=== PATIENT | male | born 1940 | race Caucasian/White ===

== ENCOUNTER 2023-01-21 08:27 | Inpatient (IN) | payer MEDICARE ==
[2023-01-18 15:46] LABS: BASOPHILS % (AUTO) 0.1 % (0-1); BILIRUBIN,URINE NEGATIVE (Neg); CLARITY,URINE CLEAR (Clear); COLOR,URINE YELLOW (Yellow); EOSINOPHILS % (AUTO) 0.3 % (0-6); GLUCOSE, URINE NEGATIVE (Neg); KETONES,URINE TRACE mg/dl (Neg); LEUKOCYTE ESTERASE ,URINE NEGATIVE (Neg); LYMPHOCYTES # (AUTO) 0.7 X10'3 (1.1-4.8); LYMPHOCYTES % (AUTO) 13.4 % (21-51); MEAN CORPUSCULAR HGB CONC 33.7 g/dL (33.0-36.5); MEAN CORPUSCULAR VOLUME 106.6 FL (78-98); MEAN PLATELET VOLUME 10.7 FL (7.4-10.4); MONOCYTES # (AUTO) 0.5 X10'3 (0-0.9); MONOCYTES % (AUTO) 9.6 % (2-12); NEUTROPHILS # (AUTO) 4.3 X10'3 (1.8-7.7); NEUTROPHILS % (AUTO) 76.6 % (42-75); NITRITES, URINE NEGATIVE (Neg); OCCULT BLOOD,URINE NEGATIVE (Neg); PRE OP HEMATOCRIT 38.6 % (42.0-52.0); PRE OP WHITE BLOOD COUNT 5.6 10'3 (4.8-10.8); PROTEIN,URINE NEGATIVE (Neg); RED BLOOD COUNT 3.62 X10'6 (4.70-6.10); RED CELL DISTRIBUTION WIDTH 15.2 % (11.5-14.5); UROBILINOGEN,URINE 0.2 E.U/dL (0.2-1.0)
[2023-01-18 15:49] LABS: UA COLLECTION TYPE CLN CATCH MIDSTREAM
[2023-01-18 15:59] LABS: PRE OP INR 1.1 INR; PRE OP PROTIME 11.4 SECONDS (9.0-12.0)
[2023-01-18 16:10] LABS: ALBUMIN 3.7 G/DL (3.4-5.0); ALBUMIN/GLOBULIN RATIO 1.2 (1.1-1.5); ALKALINE PHOSPHATASE 119 IU/L (46-116); BLOOD UREA NITROGEN 17 MG/DL (7-18); BUN/CREATININE RATIO 19.8 (10.0-20.0); CALCIUM 9.4 MG/DL (8.5-10.1); CHLORIDE 104 MMOL/L (99-107); CREATININE 0.86 MG/DL (0.60-1.10); PRE OP ALT 41 U/L (30-65); PRE OP ANION GAP 6 (8-16); PRE OP AST 43 U/L (10-37); PRE OP BILIRUB, TOTAL 1.7 MG/DL (0.0-1.0); PRE OP GLUCOSE 91 MG/DL (70-104); PRE OP SODIUM 142 MMOL/L (135-145); PRO BRAIN NATRIURETIC PEPTIDE 2817 PG/ML (0-450); THYROID STIMULATING HORMONE 5.28 ulU/ml (0.34-4.50); TOTAL PROTEIN 6.8 G/DL (6.4-8.2); eGFR 85 ML/MIN
[2023-01-18 16:11] LABS: PRE OP PLATELET COUNT 100 X10'3 (140-440)
[2023-01-21] VITALS (28 sets, daily range): BP systolic 49–212; BP diastolic 35–106; PULSE 45–121; RESP 10–16; TEMP 97.7; O2SAT 95–100
[~2023-01-21] VITALS: Ht 188 cm; Wt 95.2 kg
[2023-01-21] MEDS: nitroPRUSSIDE (NIPRIDE) (200MCG/ML) 100ML Drip IV SCH ×2 (05:30→18:39)
[~2023-01-21 08:27] MED LIST: APIX5TAB3 PO; ATOR40TA PO; CHOL200074 PO; CYAN-34 PO; DOCUMENT DATE & TIME OF BETA-BLOCKER PO ONE; FLO0.4C PO; GABA300C PO; LACT1CAP65 PO; LISI40TA13 PO; SOTA80TA73 PO; SYN0.088T PO; VITAMIN C CHEWABLE PO; aspirin 325mg tablet PO ONE; calcium chloride 100 MG/1 ML inj IV ONE; cefazolin 2gm/D5W 100mL 100 ML IV ONE; epiNEPHrine 0.1mg/ml 10ml syringe ONE; famotidine 20mg tablet PO ONE; ondansetron 4mg rapidly disintigrating tab PO PRN; phenylephrine inj 50 MG in normal saline 250ml IV solN IV SCH; protamine sulfate 10mg/ml inj. ONE; ringers solution, lacted 1,000 ML IV SCH; rocuronium 10mg/ml inj IV ONE; sodium bicarbonate (8.4%) 1 mEq/ml syringe ONE; vancomycin 1,500 MG in NS 300ml IV soln IV ONE
[2023-01-21] MEDS ORDERED: LIDOcaine 1% (10mg/ml) 2ml vial ONE (11:52)
[2023-01-21] MEDS ORDERED: protamine sulf. 10mg/ml inj. IV ONE (12:00)
[2023-01-21] MEDS ORDERED: LIDOcaine 1% (10mg/ml)w/preservative inj. 20ml MDV ONE ×2 (12:04→15:51)
[2023-01-21] MEDS ORDERED: iohexol 350MG/ML 100ml bottle IV ONE (12:04)
[2023-01-21] MEDS ORDERED: heparin 1,000 UNITS/NS 500ml 1,500 ML ONE (12:05)
[2023-01-21] MEDS ORDERED: sevoflurane 250ml liquid IH ONE (12:14)
[2023-01-21] MEDS ORDERED: midazolam 1 mg/ML 2ml injection ONE ×2 (12:24→17:08)
[2023-01-21] MEDS ORDERED: heparin 1,000unit/ml 10ml vial 10 ML ONE (12:46)
[2023-01-21] MEDS ORDERED: fentaNYL /PF 50mcg/ml 5ml ampule ONE (13:33)
[2023-01-21] MEDS ORDERED: heparin sodium, porcine/PF 100unit/ml 5ML syringe ONE (13:36)
[2023-01-21 14:03] LABS: BASOPHILS % (AUTO) 0.3 % (0-1); EOSINOPHILS % (AUTO) 0.9 % (0-6); HEMATOCRIT 35.3 % (42.0-52.0); HEMOGLOBIN 12.2 g/dl (14.0-17.9); LYMPHOCYTES # (AUTO) 0.6 X10'3 (1.1-4.8); LYMPHOCYTES % (AUTO) 13.5 % (21-51); MEAN CORPUSCULAR HEMOGLOBIN 34.5 PG (27.0-31.0); MEAN CORPUSCULAR HGB CONC 34.4 g/dL (33.0-36.5); MEAN CORPUSCULAR VOLUME 100.1 FL (78-98); MEAN PLATELET VOLUME 9.5 FL (7.4-10.4); MONOCYTES # (AUTO) 0.4 X10'3 (0-0.9); MONOCYTES % (AUTO) 8.9 % (2-12); NEUTROPHILS # (AUTO) 3.6 X10'3 (1.8-7.7); NEUTROPHILS % (AUTO) 76.4 % (42-75); PLATELET COUNT 63 X10'3 (140-440); RED BLOOD COUNT 3.53 X10'6 (4.70-6.10); RED CELL DISTRIBUTION WIDTH 18.4 % (11.5-14.5); WHITE BLOOD COUNT 4.7 X10'3 (4.5-11.0)
[2023-01-21] MEDS ORDERED: lisinopril 20mg tablet PO PRN (14:05)
[2023-01-21] MEDS ORDERED: midazolam 100mg in NS 100ml 100 ML IV PRN (14:15)
[2023-01-21] MEDS ORDERED: potassium Cl 20mEq/100mL bag 100 ML IV PRN (14:15)
[2023-01-21] MEDS ORDERED: FENTANYL-0.9 % NACL/PF 100 ML IV PRN (14:15)
[2023-01-21] MEDS ORDERED: ondansetron/PF 4mg/2ml inj IV PRN ×2 (14:15→21:55)
[2023-01-21] MEDS ORDERED: normal saline 1000ml 1,000 ML IV SCH (14:15)
[2023-01-21] MEDS ORDERED: magnesium 4gm in 100ml NS 100 ML IV PRN (14:15)
[2023-01-21] MEDS ORDERED: potassium Cl 40MEQ/270ML bag 250 ML IV PRN ×2 (14:15→21:55)
[2023-01-21] MEDS ORDERED: midazolam 1 mg/ML 2ml injection IV ONE (14:15)
[2023-01-21] MEDS ORDERED: pantoprazole 40mg Tablet.DR PO PRN (14:15)
[2023-01-21] MEDS ORDERED: docusate sod 100mg capsule PO PRN (14:15)
[2023-01-21] MEDS ORDERED: labetalol 20mg/4ml (5mg/ml) syringe IV PRN (14:15)
[2023-01-21] MEDS ORDERED: hydrALAZINE 20mg/ml inj. IV PRN (14:15)
[2023-01-21] MEDS ORDERED: fentaNYL/PF 50MCG/1 ML 2ML syringe IV PRN (14:15)
[2023-01-21] MEDS ORDERED: magnesium 2GM in 50ml NS 50 ML IV PRN ×2 (14:15→21:55)
[2023-01-21] MEDS ORDERED: potassium CL 10mEq/100ml bag 100 ML IV PRN ×2 (14:15→21:55)
[2023-01-21] MEDS ORDERED: potassium Cl 40MEQ/1/2NS 520ml 520 ML IV PRN ×2 (14:15→21:55)
[2023-01-21] MEDS ORDERED: potassium Cl 20 mEq SR tablet PO PRN (14:15)
[2023-01-21 14:18] LABS: APTT 30 SECONDS (22-32); INR 1.2 INR; PROTHROMBIN TIME 12.6 SECONDS (9.0-12.0)
[2023-01-21] MEDS ORDERED: rocuronium 10mg/ml inj IV ONE ×2 (14:23→20:29)
[2023-01-21 14:24] LABS: ALANINE AMINOTRANSFERASE 24 U/L (12-78); ALBUMIN 2.5 G/DL (3.4-5.0); ALBUMIN/GLOBULIN RATIO 1.1 (1.1-1.5); ALKALINE PHOSPHATASE 79 IU/L (46-116); ANION GAP 4 (8-16); ASPARTATE AMINO TRANSFERASE 22 U/L (10-37); BLOOD UREA NITROGEN 17 MG/DL (7-18); BUN/CREATININE RATIO 23.6 (10.0-20.0); CALCIUM 7.3 MG/DL (8.5-10.1); CHLORIDE 108 MMOL/L (99-107); CREATININE 0.72 MG/DL (0.60-1.10); GLUCOSE 128 MG/DL (70-104); POTASSIUM 3.5 MMOL/L (3.5-5.1); SODIUM 139 MMOL/L (135-145); TOTAL CARBON DIOXIDE 27.1 MMOL/L (24-32); TOTAL PROTEIN 4.7 G/DL (6.4-8.2); eCRCL 90 ML/MIN; eGFR > 90 ML/MIN
[2023-01-21] MEDS ORDERED: dexamethasone sod phosphate 4mg/ml inj. ONE (14:31)
--- NOTE | 2023-01-21 14:40 | NUR ---
Pt arrived from catheter builder, [facility] infusing, sinus rhythm, arterial and venous line to left femoral, right groin perclosed without hematoma. Pt is hypertensive. RASS -4. On ventilator.
[2023-01-21] MEDS ORDERED: propofol 1000mg/100ml bottle 100 ML IV ONE ×2 (15:04→17:13)
[2023-01-21 15:24] LABS: ABG BASE EXCESS -0.8 mmol/L (-2.0-2.0); ABG HCO3 19.3 mmol/L (22.0-26.0); ABG OXYGEN SATURATION 99.3 % (94-97); ABG PCO2 (T) 22.2 mmHg (35.0-48.0); ABG PH (T) 7.558 (7.340-7.440); ABG PO2 (T) 210.9 mmHg (75.0-100.0); ALLEN'S TEST NEGATIVE; FCOHb 0.2 % (0.0-3.9); FHHb 0.7 % (0.0-5.0); FMetHb 0.2 % (0.0-1.5); FO2Hb 98.9 % (94-97); MODE VENT - SIMV; RESPIRATORY RATE 12 b/min; TIDAL VOLUME 650 mL; TOTAL HEMOGLOBIN 14.3 G/dl (14.0-17.9)
--- NOTE | 2023-01-21 15:30 | NUR ---
Pt became hypotensive suddenly. Dr Nieto called to bedside. He aspirated blood from pt's pericardial drain and pt became hypertensive immediately. Approx 1500 mL out of mediastinum with vac bottles. veterinary laboratory technician team at bedside assisting Dr Nieto.
[2023-01-21] MEDS ORDERED: sod chloride 0.9% 10ml flush syringe IV SCH (16:00)
--- NOTE | 2023-01-21 16:30 | NUR ---
Chest tube placed by Dr Andersen.
--- NOTE | 2023-01-21 17:00 | NUR ---
Chest tube began draining rapidly. Approx 1000mL out in [address] Nieto called back to bedside. Dr Andersen called from CVOR. Chest opened at bedside by Dr Andersen and CVOR team.
[2023-01-21] MEDS ORDERED: vancomycin 1,000mg inj ONE (17:26)
[2023-01-21] MEDS ORDERED: ceFAZolin 1000mg inj ONE ×2 (17:26→20:30)
[2023-01-21 17:29] LABS: ABG BASE EXCESS -7.1 mmol/L (-2.0-2.0); ABG HCO3 22.2 mmol/L (22.0-26.0); ABG OXYGEN SATURATION 99.8 % (94-97); ABG PCO2 (T) 61.4 mmHg (35.0-48.0); ABG PH (T) 7.176 (7.340-7.440); ABG PO2 (T) 393.8 mmHg (75.0-100.0); FCOHb 0.6 % (0.0-3.9); FHHb 0.2 % (0.0-5.0); FMetHb 0.1 % (0.0-1.5); FO2Hb 99.1 % (94-97); MODE RESUS BAG; TOTAL HEMOGLOBIN 14.2 G/dl (14.0-17.9)
[2023-01-21 17:55] LABS: ABG BASE EXCESS -3.7 mmol/L (-2.0-2.0); ABG HCO3 19.8 mmol/L (22.0-26.0); ABG OXYGEN SATURATION 99.8 % (94-97); ABG PCO2 (T) 31.3 mmHg (35.0-48.0); ABG PH (T) 7.419 (7.340-7.440); ABG PO2 (T) 505.6 mmHg (75.0-100.0); FCOHb 0.7 % (0.0-3.9); FHHb 0.2 % (0.0-5.0); FMetHb 0.3 % (0.0-1.5); FO2Hb 98.8 % (94-97); MODE VENT - SIMV; RESPIRATORY RATE 16 b/min; TIDAL VOLUME 600 mL; TOTAL HEMOGLOBIN 13.2 G/dl (14.0-17.9)
--- NOTE | 2023-01-21 18:30 | NUR ---
Problems reprioritized. Patient report given, questions answered & plan of care reviewed with MIKHAIL Mitchell.
--- NOTE | 2023-01-21 18:35 | NUR ---
Patient in room ICU 2043. I have received report from Hilton ELIZONDO and had the opportunity to ask questions and assume patient care.
[2023-01-21] MEDS ORDERED: Insulin Reg/NS 100units/100mL 100 ML IV SCH (19:05)
[2023-01-21] MEDS ORDERED: dextrose 50%-water 50ml dispensing syringe IV PRN ×2 (19:05→21:55)
[2023-01-21 19:25] LABS: ABG BASE EXCESS -0.7 mmol/L (-2.0-2.0); ABG OXYGEN SATURATION 98.9 % (94-97); ABG PCO2 (T) 24.3 mmHg (35.0-48.0); ABG PH (T) 7.545 (7.340-7.440); ABG PO2 (T) 109.7 mmHg (75.0-100.0); FCOHb 0.9 % (0.0-3.9); FHHb 1.1 % (0.0-5.0); MODE VENT - SIMV; PATIENT TEMPERATURE 34.4; PEEP 5 cm H2O; RESPIRATORY RATE 16 b/min; TIDAL VOLUME 600 mL; TOTAL HEMOGLOBIN 14.6 G/dl (14.0-17.9)
[2023-01-21 19:35] LABS: BASOPHILS % (AUTO) 0.2 % (0-1); EOSINOPHILS % (AUTO) 0.1 % (0-6); HEMOGLOBIN 13.8 g/dl (14.0-17.9); LYMPHOCYTES # (AUTO) 0.4 X10'3 (1.1-4.8); MEAN CORPUSCULAR HEMOGLOBIN 32.4 PG (27.0-31.0); MEAN CORPUSCULAR HGB CONC 34.6 g/dL (33.0-36.5); MEAN CORPUSCULAR VOLUME 93.6 FL (78-98); MEAN PLATELET VOLUME 9.3 FL (7.4-10.4); MONOCYTES # (AUTO) 0.7 X10'3 (0-0.9); NEUTROPHILS # (AUTO) 8.7 X10'3 (1.8-7.7); NEUTROPHILS % (AUTO) 88.7 % (42-75); PLATELET COUNT 69 X10'3 (140-440); RED BLOOD COUNT 4.27 X10'6 (4.70-6.10); RED CELL DISTRIBUTION WIDTH 17.6 % (11.5-14.5); WHITE BLOOD COUNT 9.7 X10'3 (4.5-11.0)
[2023-01-21 19:52] LABS: ALANINE AMINOTRANSFERASE 25 U/L (12-78); ALBUMIN 2.5 G/DL (3.4-5.0); ALBUMIN/GLOBULIN RATIO 1.2 (1.1-1.5); ALKALINE PHOSPHATASE 75 IU/L (46-116); ANION GAP 9 (8-16); ASPARTATE AMINO TRANSFERASE 32 U/L (10-37); BILIRUBIN,TOTAL 2.4 MG/DL (0.1-1.0); BLOOD UREA NITROGEN 17 MG/DL (7-18); BUN/CREATININE RATIO 21.3 (10.0-20.0); CHLORIDE 108 MMOL/L (99-107); GLUCOSE 181 MG/DL (70-104); MAGNESIUM 1.6 MG/DL (1.5-2.4); PHOSPHORUS 3.3 MG/DL (2.3-4.5); POTASSIUM 3.1 MMOL/L (3.5-5.1); SODIUM 140 MMOL/L (135-145); TOTAL CARBON DIOXIDE 22.6 MMOL/L (24-32); TOTAL PROTEIN 4.6 G/DL (6.4-8.2); eCRCL 81 ML/MIN; eGFR > 90 ML/MIN
[2023-01-21] MEDS ORDERED: sotalol 80mg tablet PO SCH (20:00)
[2023-01-21] MEDS ORDERED: SUfentanil 50mcg/ml 1ml amp IV ONE (20:26)
[2023-01-21] MEDS ORDERED: NORepinephrine 8 MG in NS 250 ML BAG (32 mcg/ml) IV ONE (20:30)
[2023-01-21] MEDS ORDERED: isoflurane 100ml inhalation liquid IH ONE (20:30)
--- NOTE | 2023-01-21 20:30 | NUR ---
Pt's is at the bedside waiting for OR crew to come and take him back to surgery.
--- NOTE | 2023-01-21 20:55 | NUR ---
Pt to CVOR accompanied by OR crew and Dr. Iverson
[2023-01-21] MEDS ORDERED: ceFAZolin 1000mg inj IR ONE (21:00)
[2023-01-21] MEDS: atorvastatin 20mg tablet PO SCH (21:00)
[2023-01-21] MEDS: gabapentin 300mg capsule PO SCH (21:00)
[2023-01-21] MEDS: atorvastatin 10mg tablet PO SCH (21:00)
[2023-01-21] MEDS ORDERED: levoTHYROXINE 88mcg tablet PO SCH (21:00)
[2023-01-21 21:10] LABS: APTT 25 SECONDS (22-32); FIBRINOGEN 220 MG/DL (177-424); INR 1.2 INR; PROTHROMBIN TIME 12.3 SECONDS (9.0-12.0)
[2023-01-21 21:37] LABS: ABG BASE EXCESS -2.7 mmol/L (-2.0-2.0); ABG HCO3 20.7 mmol/L (22.0-26.0); ABG OXYGEN SATURATION 99.3 % (94-97); ABG PCO2 32.1 mmHg (35.0-48.0); ABG PH 7.428 (7.340-7.440); ABG PO2 254.5 mmHg (75.0-100.0); CL (ABG) 107 mmol/L (99-107); FCOHb 0.3 % (0.0-3.9); FHHb 0.7 % (0.0-5.0); FMetHb 0.3 % (0.0-1.5); FO2Hb 98.7 % (94-97); GLUCOSE (ABG) 130 mg/dl (70-104); IONIZED CA (ABG) 1.13 mmol/L (1.10-1.30); K (ABG) 4.5 mmol/L (3.5-5.1); TOTAL HEMOGLOBIN 13.7 G/dl (14.0-17.9)
[2023-01-21] MEDS ORDERED: HYDROcodone/acetaminophen 10/325mg tab PO PRN (21:55)
[2023-01-21] MEDS ORDERED: metoclopramide 5 mg/ml inj IV PRN (21:55)
[2023-01-21] MEDS ORDERED: sodium phosphate inj. 15 MMOL in dextrose 5%-water 250 ML IV PRN (21:55)
[2023-01-21] MEDS ORDERED: mineral oil 133ml enema RC PRN (21:55)
[2023-01-21] MEDS ORDERED: acetaminophen 325mg tablet PO PRN ×2 (21:55)
[2023-01-21] MEDS ORDERED: niCARDipine-NS 40mg/200ml IVPB 200 ML IV PRN (21:55)
[2023-01-21] MEDS ORDERED: morphine 2 MG/ML inj. syringe IV PRN (21:55)
[2023-01-21] MEDS ORDERED: albumin (Human) 5% 250ml 250 ML IV PRN (21:55)
[2023-01-21] MEDS ORDERED: Neutra Phos packet PO PRN (21:55)
[2023-01-21] MEDS ORDERED: insulin glargine (Lantus) pen - multi-dose SQ PRN (21:55)
[2023-01-21] MEDS ORDERED: sodium phosphate inj. 30 MMOL in dextrose 5%-water 250 ML IV PRN (21:55)
[2023-01-21] MEDS ORDERED: morphine 4 MG/ML inj SYRINge IV PRN (21:55)
[2023-01-21] MEDS ORDERED: bisacodyl 10mg suppository rectal RC PRN (21:55)
[2023-01-21] MEDS ORDERED: magnesium hydroxide 30ml (MOM) UD suspension PO PRN (21:55)
[2023-01-21] MEDS ORDERED: MIDAZolam 1 MG/ML 5ML VIAL ONE (21:56)
--- NOTE | 2023-01-21 22:45 | NUR ---
Received to room 2043, accompanied by Estefany Andersen and Trim and surgical crew. Placed on ventilator, to school lunch monitor, arterial line and PA line pressure zeroed & monitored. Chest tubes to suction at 20 cm. Juarez cath to gravity drainage. Dressings are dry and intact. See assessment record. All vasoactive drugs are infusing via central line.
[2023-01-21] MEDS: potassium Cl 20mEq/100mL bag 100 ML IV PRN ×2 (23:05→23:06)
[2023-01-21 23:31] LABS: BASOPHILS % (AUTO) 0.4 % (0-1); EOSINOPHILS % (AUTO) 0 % (0-6); HEMATOCRIT 34.5 % (42.0-52.0); LYMPHOCYTES # (AUTO) 0.3 X10'3 (1.1-4.8); LYMPHOCYTES % (AUTO) 2.6 % (21-51); MEAN CORPUSCULAR HEMOGLOBIN 32.7 PG (27.0-31.0); MEAN CORPUSCULAR HGB CONC 34.9 g/dL (33.0-36.5); MEAN CORPUSCULAR VOLUME 93.8 FL (78-98); MONOCYTES % (AUTO) 8.6 % (2-12); NEUTROPHILS # (AUTO) 9.9 X10'3 (1.8-7.7); NEUTROPHILS % (AUTO) 88.4 % (42-75); PLATELET COUNT 102 X10'3 (140-440); RED BLOOD COUNT 3.67 X10'6 (4.70-6.10); RED CELL DISTRIBUTION WIDTH 17.1 % (11.5-14.5); WHITE BLOOD COUNT 11.2 X10'3 (4.5-11.0)
[2023-01-21 23:41] LABS: APTT 27 SECONDS (22-32); FIBRINOGEN 212 MG/DL (177-424); INR 1.2 INR; PROTHROMBIN TIME 12.4 SECONDS (9.0-12.0)
[2023-01-21 23:43] LABS: ALANINE AMINOTRANSFERASE 23 U/L (12-78); ALBUMIN 2.7 G/DL (3.4-5.0); ALBUMIN/GLOBULIN RATIO 1.4 (1.1-1.5); ALKALINE PHOSPHATASE 67 IU/L (46-116); ANION GAP 8 (8-16); ASPARTATE AMINO TRANSFERASE 34 U/L (10-37); BILIRUBIN,TOTAL 2.6 MG/DL (0.1-1.0); BLOOD UREA NITROGEN 18 MG/DL (7-18); BUN/CREATININE RATIO 22.8 (10.0-20.0); CHLORIDE 107 MMOL/L (99-107); CREATININE 0.79 MG/DL (0.60-1.10); GLUCOSE 131 MG/DL (70-104); POTASSIUM 4.5 MMOL/L (3.5-5.1); SODIUM 138 MMOL/L (135-145); TOTAL CARBON DIOXIDE 22.8 MMOL/L (24-32); TOTAL PROTEIN 4.6 G/DL (6.4-8.2); eCRCL 82 ML/MIN; eGFR > 90 ML/MIN
[2023-01-22] VITALS (30 sets, daily range): BP systolic 113–174; BP diastolic 41–69; PULSE 60–94; RESP 13–20; O2SAT 93–100
[2023-01-22] MEDS: potassium Cl 20mEq/100mL bag 100 ML IV PRN (00:02)
[2023-01-22] MEDS: ceFAZolin/D5W- 1GM premix 50 ML IV SCH ×3 (00:03→17:12)
[2023-01-22] MEDS: sodium chloride 0.45% 1,000 ML IV SCH (00:03)
[2023-01-22 01:02] LABS: MAGNESIUM 1.5 MG/DL (1.5-2.4)
[2023-01-22] MEDS: magnesium 4gm in 100ml NS 100 ML IV PRN (02:02)
[2023-01-22 02:51] LABS: ABG BASE EXCESS 0.3 mmol/L (-2.0-2.0); ABG HCO3 23.2 mmol/L (22.0-26.0); ABG OXYGEN SATURATION 97.7 % (94-97); ABG PCO2 (T) 32.3 mmHg (35.0-48.0); ABG PH (T) 7.474 (7.340-7.440); ABG PO2 (T) 94.2 mmHg (75.0-100.0); FHHb 2.3 % (0.0-5.0); FMetHb 0.3 % (0.0-1.5); FO2Hb 96.4 % (94-97); MODE VENT - SIMV; PATIENT TEMPERATURE 37.1; PEEP 5 cm H2O; RESPIRATORY RATE 14 b/min; TIDAL VOLUME 600 mL; TOTAL HEMOGLOBIN 12.5 G/dl (14.0-17.9)
--- NOTE | 2023-01-22 04:31 | NUR ---
Pt is waking up and opening his eyes to voice but still not following commands.
[2023-01-22] MEDS: Insulin Reg/NS 100units/100mL 100 ML IV SCH (04:46)
[2023-01-22 05:42] LABS: ALANINE AMINOTRANSFERASE 20 U/L (12-78); ALBUMIN 2.6 G/DL (3.4-5.0); ALBUMIN/GLOBULIN RATIO 1.4 (1.1-1.5); ALKALINE PHOSPHATASE 60 IU/L (46-116); ANION GAP 6 (8-16); ASPARTATE AMINO TRANSFERASE 37 U/L (10-37); BASOPHILS % (AUTO) 0.1 % (0-1); BILIRUBIN,TOTAL 2.4 MG/DL (0.1-1.0); BLOOD UREA NITROGEN 19 MG/DL (7-18); BUN/CREATININE RATIO 21.3 (10.0-20.0); CALCIUM 7.9 MG/DL (8.5-10.1); CHLORIDE 109 MMOL/L (99-107); CREATININE 0.89 MG/DL (0.60-1.10); EOSINOPHILS % (AUTO) 0 % (0-6); GLUCOSE 101 MG/DL (70-104); HEMATOCRIT 32.8 % (42.0-52.0); HEMOGLOBIN 11.4 g/dl (14.0-17.9); LYMPHOCYTES # (AUTO) 0.4 X10'3 (1.1-4.8); LYMPHOCYTES % (AUTO) 4.9 % (21-51); MAGNESIUM 2.5 MG/DL (1.5-2.4); MEAN CORPUSCULAR HEMOGLOBIN 32.8 PG (27.0-31.0); MEAN CORPUSCULAR HGB CONC 34.9 g/dL (33.0-36.5); MEAN CORPUSCULAR VOLUME 93.9 FL (78-98); MEAN PLATELET VOLUME 9.4 FL (7.4-10.4); MONOCYTES # (AUTO) 0.8 X10'3 (0-0.9); MONOCYTES % (AUTO) 10.1 % (2-12); NEUTROPHILS # (AUTO) 7.1 X10'3 (1.8-7.7); NEUTROPHILS % (AUTO) 84.9 % (42-75); PLATELET COUNT 98 X10'3 (140-440); POTASSIUM 4.7 MMOL/L (3.5-5.1); RED BLOOD COUNT 3.49 X10'6 (4.70-6.10); RED CELL DISTRIBUTION WIDTH 17.1 % (11.5-14.5); SODIUM 140 MMOL/L (135-145); TOTAL CARBON DIOXIDE 24.7 MMOL/L (24-32); TOTAL PROTEIN 4.4 G/DL (6.4-8.2); WHITE BLOOD COUNT 8.4 X10'3 (4.5-11.0); eCRCL 73 ML/MIN; eGFR 82 ML/MIN
--- NOTE | 2023-01-22 06:00 | NUR ---
The pt is awake and restless/agitated reoriented to the ICU and what has happened over the past 16 hours. The pt nods appropriately at times but is not following commands.
--- NOTE | 2023-01-22 06:16 | NUR ---
Problems reprioritized. Patient report given, questions answered & plan of care reviewed with Hilton ELIZONDO.
[2023-01-22] MEDS: mupirocin 2% ointment 22GM NS SCH ×2 (08:00→21:41)
[2023-01-22] MEDS ORDERED: lactobacillus rhamnosus 10,000 MMU CELLS/CAPSULE PO SCH (08:00)
[2023-01-22] MEDS: cholecalciferol (vitamin D3) 1,000 unit (25mcg) tablet PO SCH (08:44)
[2023-01-22] MEDS: ascorbic acid 500mg tablet PO SCH (08:45)
[2023-01-22] MEDS: sennosides/docusate sodium tablet PO SCH ×2 (08:45→21:42)
[2023-01-22] MEDS: metoprolol tartrate 12.5mg (1/2 tablet) PO SCH ×2 (08:45→21:42)
[2023-01-22] MEDS: aspirin 81mg tab.chew PO SCH (08:46)
[2023-01-22] MEDS: gabapentin 300mg capsule PO SCH ×2 (08:47→21:42)
[2023-01-22] MEDS: vancomycin/NS 1 GM ADD-VANTAGE 250 ML IV SCH ×2 (09:53→21:40)
--- NOTE | 2023-01-22 10:43 | NUR ---
Nutrition consult: Per EMR pt POD #1 s/p emergent sternotomy after code following TAVR and subsequent irrigation and closure. Pt just extubated though would benefit from high protein education as appropriate. Will continue to follow. Addendum: 01/22/23 at [address] Amended: Links added.
[2023-01-22 11:25] LABS: ABG HCO3 22.6 mmol/L (22.0-26.0); ABG OXYGEN SATURATION 97.9 % (94-97); ABG PCO2 (T) 34.1 mmHg (35.0-48.0); ABG PH (T) 7.439 (7.340-7.440); ABG PO2 (T) 100.1 mmHg (75.0-100.0); FCOHb 1.2 % (0.0-3.9); FHHb 2.1 % (0.0-5.0); FO2Hb 96.7 % (94-97); PEEP 5 cm H2O; TOTAL HEMOGLOBIN 12.8 G/dl (14.0-17.9)
--- NOTE | 2023-01-22 12:00 | NUR ---
labor relations supervisor nurse pulled arterial and venous sheaths from left groin and placed perclose.
--- NOTE | 2023-01-22 12:23 | NUR ---
Called Dr Nieto with nonemergent icu management questions. Left Voicemail.
--- NOTE | 2023-01-22 12:39 | NUR ---
Dr Nieto called back. Received orders for oral nicardipine to assist in getting pt off cardene gtt. Arterial line may be discontinued when pt is off cardene gtt. Blood pressure parameters deferred to Dr Andersen
--- NOTE | 2023-01-22 12:48 | NUR ---
Spoke with Heath Denney PAC. Discussed BP parameters and Dr Nieto's orders. NEW BP parameter is SBP <120.
[2023-01-22] MEDS ORDERED: NIFEdipine XL 30mg tablet PO ONE (12:50)
--- NOTE | 2023-01-22 18:30 | NUR ---
Patient in room ICU 2043. I have received report from Hilton ELIZONDO and had the opportunity to ask questions and assume patient care.
[2023-01-22] MEDS ORDERED: mineral oil/petrolatum ophthal oint EACHEYE SCH (20:00)
[2023-01-22] MEDS: sotalol HCl 40mg (1/2 tablet) PO SCH (20:00)
[2023-01-22] MEDS: atorvastatin 10mg tablet PO SCH (20:04)
--- NOTE | 2023-01-22 21:07 | NUR ---
Pt woke up confused to where he was and why he was here. Reoriented pt to both. Then pt requested to get put of bed so I got Leslie RN to help then pt changed his mind because "he didn't want to get out of bed that way". Repositioned pt for comfort and continued to talk with him to verify that he understood why he was here and he does.
[2023-01-22] MEDS: atorvastatin 20mg tablet PO SCH (21:42)
[2023-01-23] VITALS (24 sets, daily range): BP systolic 95–153; BP diastolic 44–62; PULSE 68–97; RESP 13–22; O2SAT 91–96
--- NOTE | 2023-01-23 00:12 | NUR ---
Pt woke painful, given pain medication and repositioned. Pt remembers that he is in the hospital and why he is here.
[2023-01-23] MEDS: HYDROcodone/acetaminophen 10/325mg tab PO PRN ×3 (01:02→09:03)
[2023-01-23] MEDS: ceFAZolin/D5W- 1GM premix 50 ML IV SCH ×2 (01:04→08:55)
--- NOTE | 2023-01-23 01:36 | NUR ---
Pt woke up painful asking questions about his surgery and what had happened. Answered pt's questions and gave him a norco for pain. Worked on deep breathing and sternal precautions with the pt as well. pt now resting comfortably
[2023-01-23 03:19] LABS: BASOPHILS % (AUTO) 0.1 % (0-1); EOSINOPHILS % (AUTO) 0 % (0-6); HEMATOCRIT 30.8 % (42.0-52.0); HEMOGLOBIN 10.5 g/dl (14.0-17.9); LYMPHOCYTES # (AUTO) 0.6 X10'3 (1.1-4.8); LYMPHOCYTES % (AUTO) 5.4 % (21-51); MEAN CORPUSCULAR HEMOGLOBIN 32.5 PG (27.0-31.0); MEAN CORPUSCULAR HGB CONC 34.2 g/dL (33.0-36.5); MEAN CORPUSCULAR VOLUME 95.2 FL (78-98); MEAN PLATELET VOLUME 9.4 FL (7.4-10.4); MONOCYTES # (AUTO) 1.2 X10'3 (0-0.9); MONOCYTES % (AUTO) 10.1 % (2-12); NEUTROPHILS # (AUTO) 9.7 X10'3 (1.8-7.7); NEUTROPHILS % (AUTO) 84.4 % (42-75); PLATELET COUNT 88 X10'3 (140-440); RED BLOOD COUNT 3.24 X10'6 (4.70-6.10); RED CELL DISTRIBUTION WIDTH 17.5 % (11.5-14.5); WHITE BLOOD COUNT 11.5 X10'3 (4.5-11.0)
[2023-01-23 03:22] LABS: ALBUMIN 2.4 G/DL (3.4-5.0); ANION GAP 1 (8-16); BLOOD UREA NITROGEN 22 MG/DL (7-18); BUN/CREATININE RATIO 24.7 (10.0-20.0); CALCIUM 7.8 MG/DL (8.5-10.1); CHLORIDE 106 MMOL/L (99-107); CREATININE 0.89 MG/DL (0.60-1.10); GLUCOSE 126 MG/DL (70-104); POTASSIUM 4.1 MMOL/L (3.5-5.1); SODIUM 134 MMOL/L (135-145); eCRCL 73 ML/MIN; eGFR 82 ML/MIN
[2023-01-23] MEDS: potassium Cl 20mEq/100mL bag 100 ML IV PRN ×2 (03:47→05:02)
[2023-01-23 05:44] LABS: MAGNESIUM 2.4 MG/DL (1.5-2.4); PHOSPHORUS 3.3 MG/DL (2.3-4.5)
--- NOTE | 2023-01-23 06:51 | NUR ---
Problems reprioritized. Patient report given, questions answered & plan of care reviewed with Candy RN.
--- NOTE | 2023-01-23 07:00 | NUR ---
RECEIVED REPORT FROM CRUZ MURO RN AND ASSUMED CARE OF PATIENT. PT IS ASLEEP AND APPEARS COMFORTABLE AT THIS TIME. ZEROED ART LINE WITH FORESTRY FACULTY MEMBER. AUTOMOTIVE MACHINIST APPRENTICE RN TO COME AND DC ART LINE THIS AM PER
[2023-01-23] MEDS: Insulin Reg/NS 100units/100mL 100 ML IV SCH (07:15)
[2023-01-23] MEDS: sotalol HCl 40mg (1/2 tablet) PO SCH (08:00)
[2023-01-23] MEDS: vancomycin/NS 1 GM ADD-VANTAGE 250 ML IV SCH (08:55)
[2023-01-23] MEDS: mupirocin 2% ointment 22GM NS SCH ×2 (08:56→21:31)
[2023-01-23] MEDS: metoprolol tartrate 12.5mg (1/2 tablet) PO SCH ×2 (08:57→21:31)
[2023-01-23] MEDS: ascorbic acid 500mg tablet PO SCH (08:57)
[2023-01-23] MEDS: cholecalciferol (vitamin D3) 1,000 unit (25mcg) tablet PO SCH (08:58)
[2023-01-23] MEDS: aspirin 81mg tab.chew PO SCH (08:58)
[2023-01-23] MEDS: sennosides/docusate sodium tablet PO SCH ×2 (08:58→21:32)
[2023-01-23] MEDS: gabapentin 300mg capsule PO SCH ×2 (08:58→21:00)
[2023-01-23] MEDS: pantoprazole 40mg Tablet.DR PO SCH (08:58)
[2023-01-23] MEDS: NIFEdipine XL 30mg tablet PO SCH (11:45)
--- NOTE | 2023-01-23 18:30 | NUR ---
pt standing at edge of bed, tangled in heart monitor wires, trying to pee and standing in pee. pt assisted to chair and cleaned up. pt very confused as to where he is and why he is here. Attempt to reorient pt but he is not believing us
--- NOTE | 2023-01-23 18:40 | NUR ---
Patient in room ICU 2043. I have received report from Candy ELIZONDO and had the opportunity to ask questions and assume patient care.
--- NOTE | 2023-01-23 19:17 | NUR ---
pt is confused, restless, and impulsive. Does not understand "why he has to stay here". Pt educated as to why he is here and what has happened over the past 2 days. Pt does not believe me.
--- NOTE | 2023-01-23 19:50 | NUR ---
pt assisted back to bed and reoriented to location and plan of care, his questions answered. Bed alarm is turned on and he is currently resting comfortably
[2023-01-23] MEDS: atorvastatin 20mg tablet PO SCH (21:00)
[2023-01-23] MEDS: sodium chloride 0.45% 1,000 ML IV SCH (21:55)
[2023-01-24] VITALS (23 sets, daily range): BP systolic 73–150; BP diastolic 41–65; PULSE 76–97; RESP 15–24; O2SAT 93–97
--- NOTE | 2023-01-24 05:21 | NUR ---
pt still confused but less impulsive, he is asking for help to use the urinal. continuing to reorient him and offer him water, juice, and pain medication but he is refusing at this time.
[2023-01-24 05:55] LABS: ALBUMIN 2.4 G/DL (3.4-5.0); ANION GAP 3 (8-16); BLOOD UREA NITROGEN 21 MG/DL (7-18); BUN/CREATININE RATIO 24.7 (10.0-20.0); CHLORIDE 104 MMOL/L (99-107); CREATININE 0.85 MG/DL (0.60-1.10); GLUCOSE 103 MG/DL (70-104); MAGNESIUM 1.9 MG/DL (1.5-2.4); PHOSPHORUS 2.7 MG/DL (2.3-4.5); POTASSIUM 3.9 MMOL/L (3.5-5.1); SODIUM 136 MMOL/L (135-145); TOTAL CARBON DIOXIDE 28.7 MMOL/L (24-32); eCRCL 77 ML/MIN; eGFR 86 ML/MIN
[2023-01-24 05:58] LABS: BASOPHILS % (AUTO) 0.1 % (0-1); EOSINOPHILS % (AUTO) 0.1 % (0-6); HEMATOCRIT 30.7 % (42.0-52.0); HEMOGLOBIN 10.5 g/dl (14.0-17.9); LYMPHOCYTES # (AUTO) 0.6 X10'3 (1.1-4.8); LYMPHOCYTES % (AUTO) 6.2 % (21-51); MEAN CORPUSCULAR HGB CONC 34.3 g/dL (33.0-36.5); MEAN CORPUSCULAR VOLUME 96.1 FL (78-98); MEAN PLATELET VOLUME 9.7 FL (7.4-10.4); MONOCYTES % (AUTO) 10.3 % (2-12); NEUTROPHILS # (AUTO) 8.2 X10'3 (1.8-7.7); NEUTROPHILS % (AUTO) 83.3 % (42-75); PLATELET COUNT 70 X10'3 (140-440); RED CELL DISTRIBUTION WIDTH 17.3 % (11.5-14.5); WHITE BLOOD COUNT 9.9 X10'3 (4.5-11.0)
--- NOTE | 2023-01-24 06:34 | NUR ---
Problems reprioritized. Patient report given, questions answered & plan of care reviewed with Lorri ELIZONDO.
[2023-01-24] MEDS: magnesium 4gm in 100ml NS 100 ML IV PRN (06:49)
[2023-01-24] MEDS: metoprolol tartrate 12.5mg (1/2 tablet) PO SCH ×2 (07:25→20:00)
[2023-01-24] MEDS: tamsulosin 0.4mg capsule PO PRN (07:26)
[2023-01-24] MEDS: cholecalciferol (vitamin D3) 1,000 unit (25mcg) tablet PO SCH (07:26)
[2023-01-24] MEDS: gabapentin 300mg capsule PO SCH ×2 (07:26→20:41)
[2023-01-24] MEDS: pantoprazole 40mg Tablet.DR PO SCH (07:26)
[2023-01-24] MEDS: potassium Cl 20 mEq SR tablet PO PRN (07:26)
[2023-01-24] MEDS: sennosides/docusate sodium tablet PO SCH ×2 (07:26→20:41)
[2023-01-24] MEDS: ascorbic acid 500mg tablet PO SCH (07:26)
[2023-01-24] MEDS: aspirin 81mg tab.chew PO SCH (07:35)
[2023-01-24] MEDS: NIFEdipine XL 30mg tablet PO SCH (07:35)
--- NOTE | 2023-01-24 09:01 | NUR ---
Dr. Andersen in to see pt. Stated pt. can go to floor.
--- NOTE | 2023-01-24 18:15 | NUR ---
Patient in room ICU 2043. I have received report from Lorri ELIZONDO and had the opportunity to ask questions and assume patient care.
[2023-01-24 20:18] LABS: HEMATOCRIT 29.2 % (42.0-52.0); HEMOGLOBIN 9.8 g/dl (14.0-17.9); MEAN CORPUSCULAR HEMOGLOBIN 32.8 PG (27.0-31.0); MEAN CORPUSCULAR HGB CONC 33.7 g/dL (33.0-36.5); MEAN CORPUSCULAR VOLUME 97.4 FL (78-98); MEAN PLATELET VOLUME 9.8 FL (7.4-10.4); PLATELET COUNT 72 X10'3 (140-440); WHITE BLOOD COUNT 8.7 X10'3 (4.5-11.0)
[2023-01-24] MEDS: atorvastatin 20mg tablet PO SCH (20:42)
[2023-01-25] VITALS (13 sets, daily range): BP systolic 89–138; BP diastolic 36–67; PULSE 52–132; RESP 15–26; TEMP 97.8–98.8; O2SAT 90–96
[2023-01-25 05:06] LABS: ALBUMIN 2.2 G/DL (3.4-5.0); ANION GAP 3 (8-16); BLOOD UREA NITROGEN 26 MG/DL (7-18); CHLORIDE 105 MMOL/L (99-107); CREATININE 0.93 MG/DL (0.60-1.10); GLUCOSE 102 MG/DL (70-104); SODIUM 138 MMOL/L (135-145); TOTAL CARBON DIOXIDE 29.9 MMOL/L (24-32); eCRCL 70 ML/MIN; eGFR 78 ML/MIN
[2023-01-25] MEDS: HYDROcodone/acetaminophen 10/325mg tab PO PRN ×2 (05:07→14:43)
[2023-01-25] MEDS: potassium Cl 20 mEq SR tablet PO PRN (05:39)
--- NOTE | 2023-01-25 06:05 | NUR ---
The pt started off the evening confused, oriented only to self. As the night went on, with frequent reorientation, the pt has become less confused, remembering where he is and why he is here. He is using the call light appropriately and not being impulsive.
--- NOTE | 2023-01-25 06:32 | NUR ---
Problems reprioritized. Patient report given, questions answered & plan of care reviewed with Billie ELIZONDO.
[2023-01-25 06:46] LABS: ISTAT HGB MIX 11.6 g/dl (14.0-17.9); ISTAT Hct MIX 34 %PCV (42-52); ISTAT O2 SATURATION MIX VENOUS 75 % (60-80); ISTAT SOURCE BLNK
[2023-01-25] MEDS ORDERED: magnesium citrate 296ml oral solution PO ONE (08:40)
[2023-01-25] MEDS: aspirin 81mg tab.chew PO SCH (09:59)
[2023-01-25] MEDS: cholecalciferol (vitamin D3) 1,000 unit (25mcg) tablet PO SCH (10:00)
[2023-01-25] MEDS: gabapentin 300mg capsule PO SCH ×2 (10:00→20:05)
[2023-01-25] MEDS: tamsulosin 0.4mg capsule PO PRN (10:00)
[2023-01-25] MEDS: sennosides/docusate sodium tablet PO SCH ×2 (10:00→20:04)
[2023-01-25] MEDS: pantoprazole 40mg Tablet.DR PO SCH (10:00)
[2023-01-25] MEDS: ascorbic acid 500mg tablet PO SCH (10:00)
[2023-01-25] MEDS: metoprolol tartrate 12.5mg (1/2 tablet) PO SCH (10:01)
--- NOTE | 2023-01-25 11:14 | NUR ---
pt found up ambulating without using sternal precautions and using his cane. after reeducating patient, he forgets conversation and is questioning why... answere orientation questions appropriately but seems to have short term forgetfulness. called patient while i was in the room and patients started crying because her (the patient) is normally the caregiver for the both of them. she is unable to care for herself and has diahrrea today. made sure she was safe and she stated her friend is on the way over right now. she also has a family friend arriving tonight from [place] to help care for herself. patient then got upset and started crying when talking with his
[2023-01-25] MEDS: sotalol 40mg tablet PO SCH ×2 (11:25→20:00)
[2023-01-25] MEDS: NIFEdipine XL 30mg tablet PO SCH (12:38)
--- NOTE | 2023-01-25 17:54 | NUR ---
DR Shaye JIMENEZ IN TO SEE PATIENT JUST HE WAS WALKING BACK FROM THE BATHROOM. PT CONTINUALLY GETS UP BY HIMSELF THROUGHOUT THE DAY. MOVED HIM UP CLOSER TO THE NURSES STATION, BUT HE CONTINUES TO ATTEMPT, EVEN AFTER REORIENTING HIM. HE IS VERY RESISTANT TO CARE AND IS ARGUMENTATIVE WITH EACH INTERVENTION. HE GOES IN AND OUT OF LUCIDNESS, OVERALL HE IS JUST FORGETFULL, SHORT TERM FORGETFULNESS. DR JIMENEZ ORDERED A ONE TIME BOLUS PATIENTS BLOOD PRESSURE IS LOW WITH A MAP OF MORE THAN 60 (SYSTOLIC=79-84) REPORTED OFF TO NOC SHIFT RN GEORGE
[2023-01-25] MEDS ORDERED: normal saline 1000ml 1,000 ML IV ONE (18:25)
[2023-01-25] MEDS ORDERED: sotalol 40mg tablet PO SCH (20:00)
[2023-01-25] MEDS: atorvastatin 20mg tablet PO SCH (20:05)
[2023-01-25] MEDS: sodium chloride 0.45% 1,000 ML IV SCH (21:55)
[2023-01-26] VITALS (7 sets, daily range): BP systolic 92–144; BP diastolic 46–57; PULSE 72–87; RESP 16–21; TEMP 97.5–98.3; O2SAT 94–98
[2023-01-26] MEDS: HYDROcodone/acetaminophen 10/325mg tab PO PRN ×4 (02:54→22:30)
--- NOTE | 2023-01-26 06:32 | NUR ---
Problems reprioritized. Patient report given, questions answered & plan of care reviewed with Candy RN. Pt stable at shift change.
[2023-01-26] MEDS: sotalol 40mg tablet PO SCH ×2 (08:00→20:01)
[2023-01-26] MEDS: NIFEdipine XL 30mg tablet PO SCH (08:00)
[2023-01-26 09:37] LABS: BASOPHILS % (AUTO) 0.2 % (0-1); EOSINOPHILS # (AUTO) 0.1 X10'3 (0-0.9); EOSINOPHILS % (AUTO) 0.7 % (0-6); HEMOGLOBIN 10.1 g/dl (14.0-17.9); LYMPHOCYTES # (AUTO) 0.9 X10'3 (1.1-4.8); LYMPHOCYTES % (AUTO) 11.4 % (21-51); MEAN CORPUSCULAR HEMOGLOBIN 33.1 PG (27.0-31.0); MEAN CORPUSCULAR HGB CONC 33.7 g/dL (33.0-36.5); MEAN CORPUSCULAR VOLUME 98.5 FL (78-98); MEAN PLATELET VOLUME 10.4 FL (7.4-10.4); MONOCYTES # (AUTO) 0.7 X10'3 (0-0.9); NEUTROPHILS # (AUTO) 5.8 X10'3 (1.8-7.7); NEUTROPHILS % (AUTO) 77.7 % (42-75); PLATELET COUNT 103 X10'3 (140-440); RED BLOOD COUNT 3.04 X10'6 (4.70-6.10); RED CELL DISTRIBUTION WIDTH 17.4 % (11.5-14.5); WHITE BLOOD COUNT 7.4 X10'3 (4.5-11.0)
[2023-01-26 09:39] LABS: ALBUMIN 2.5 G/DL (3.4-5.0); ANION GAP 8 (8-16); BLOOD UREA NITROGEN 37 MG/DL (7-18); BUN/CREATININE RATIO 35.6 (10.0-20.0); CALCIUM 8.2 MG/DL (8.5-10.1); CHLORIDE 101 MMOL/L (99-107); CREATININE 1.04 MG/DL (0.60-1.10); GLUCOSE 97 MG/DL (70-104); POTASSIUM 4.1 MMOL/L (3.5-5.1); SODIUM 135 MMOL/L (135-145); TOTAL CARBON DIOXIDE 26.3 MMOL/L (24-32); eCRCL 63 ML/MIN; eGFR 68 ML/MIN
[2023-01-26] MEDS: gabapentin 300mg capsule PO SCH ×2 (09:51→20:11)
[2023-01-26] MEDS: pantoprazole 40mg Tablet.DR PO SCH (09:51)
[2023-01-26] MEDS: aspirin 81mg tab.chew PO SCH (09:51)
[2023-01-26] MEDS: sennosides/docusate sodium tablet PO SCH ×2 (09:51→20:00)
[2023-01-26] MEDS: tamsulosin 0.4mg capsule PO PRN (09:51)
[2023-01-26] MEDS: cholecalciferol (vitamin D3) 1,000 unit (25mcg) tablet PO SCH (09:51)
[2023-01-26] MEDS: ascorbic acid 500mg tablet PO SCH (09:52)
--- NOTE | 2023-01-26 15:51 | NUR ---
Initial: Pt admit for severe aortic stenosis, currently POD #5 s/p TAVR and emergent sternotomy with irrigation and closure. Per EMR pt A/O x 1 and confused, written protein education with ONS coupons and RD contact information placed in patient's chart. Pt on a no concentrated sweets diet with fluctuating PO intake, documented with average 60% PO intake of meals d/t refusal of two meals and occasional decline in PO intake. Per verbal d/w RN pt is eating 100% PO intake of meals today. No nutrition intervention implemented at this time given improved PO intake. LBM 01/25 per EMR. Pt receiving routine bowel care and has additional PRN bowel care available. Will continue to follow and make recommendations as appropriate. Recommendations: 1) Continue no concentrated sweets diet 2) Monitor need for ONS/additional protein 3) Routine bowel care 4) Weekly scaled weights Addendum: 01/26/23 at [address] Amended: Links added.
[2023-01-26] MEDS: atorvastatin 20mg tablet PO SCH (20:11)
--- NOTE | 2023-01-27 03:57 | NUR ---
I AGREE WITH PHY THERAPIST'S ASSESSMENT
--- NOTE | 2023-01-27 06:32 | NUR ---
Patient in room PCU 3015. I have received report from Erin BRISENO and had the opportunity to ask questions and assume patient care.
[2023-01-27 07:00] VITALS: BP 134/56; PULSE 66; RESP 20; TEMP 97.6; O2SAT 98
[2023-01-27] MEDS: NIFEdipine XL 30mg tablet PO SCH (07:56)
[2023-01-27] MEDS: gabapentin 300mg capsule PO SCH (07:56)
[2023-01-27] MEDS: cholecalciferol (vitamin D3) 1,000 unit (25mcg) tablet PO SCH (07:56)
[2023-01-27] MEDS: pantoprazole 40mg Tablet.DR PO SCH (07:56)
[2023-01-27] MEDS: sennosides/docusate sodium tablet PO SCH (07:56)
[2023-01-27] MEDS: ascorbic acid 500mg tablet PO SCH (07:56)
[2023-01-27] MEDS: aspirin 81mg tab.chew PO SCH (07:56)
[2023-01-27] MEDS: sotalol 40mg tablet PO SCH (08:00)
[2023-01-27] MEDS ORDERED: HYDR-3972 PO (09:12)
[2023-01-27] MEDS ORDERED: ASPI81TA53 PO (09:12)
[2023-01-27 11:00] VITALS: BP 101/53; PULSE 64; RESP 18; TEMP 97.9; O2SAT 95
--- NOTE | 2023-01-27 13:50 | NUR ---
Patient discharged with all belongings and discharge instructions. IV removed and tele monitor removed and returned to [facility]. Escorted out via wheel chair and left in private vehicle. Reinforced teaching on sternal precautions. Patient continues to be noncompliant. Addendum: 01/27/23 at 1443 by Yaneth Sands LVN, LVN Nurse explained the risks of not properly using sternal precautions. Patient and verbalized understanding.
== END 2023-01-27 13:50 | disposition home health service (06) | DRG 266 ==
LOC: PAS IN 08:27 → EDSTATUS 10:30 → ICU 2S 15:15 → PCU 3S 01-25 07:35
PROVIDERS: ADMIT Internal Medicine Cardiovascular Disease; ATTEND Internal Medicine Cardiovascular Disease
PROC: 0W9D00Z Drainage of Pericardial Cavity with Drainage Device, Open Approach (ICD-10-PCS; 2023-01-21)
PROC: 03HY32Z Insertion of Monitoring Device into Upper Artery, Percutaneous Approach (ICD-10-PCS; 2023-01-21)
PROC: B41D1ZZ Fluoroscopy of Aorta and Bilateral Lower Extremity Arteries using Low Osmolar Contrast (ICD-10-PCS; 2023-01-21)
PROC: 30233N1 Transfusion of Nonautologous Red Blood Cells into Peripheral Vein, Percutaneous Approach (ICD-10-PCS; 2023-01-21)
PROC: 30233K1 Transfusion of Nonautologous Frozen Plasma into Peripheral Vein, Percutaneous Approach (ICD-10-PCS; 2023-01-21)
PROC: 30233R1 Transfusion of Nonautologous Platelets into Peripheral Vein, Percutaneous Approach (ICD-10-PCS; 2023-01-21)
PROC: 30233M1 Transfusion of Nonautologous Plasma Cryoprecipitate into Peripheral Vein, Percutaneous Approach (ICD-10-PCS; 2023-01-21)
PROC: 02RF38Z Replacement of Aortic Valve with Zooplastic Tissue, Percutaneous Approach (ICD-10-PCS; principal; 2023-01-21 12:14)
DX: I35.0 Nonrheumatic aortic (valve) stenosis (principal); Z00.6 Encounter for examination for normal comparison and control in clinical research program; R57.0 Cardiogenic shock; I31.39 Other pericardial effusion (noninflammatory); I31.4 Cardiac tamponade; I65.29 Occlusion and stenosis of unspecified carotid artery; I49.5 Sick sinus syndrome
CPT/HCPCS: 33016; 33361; 36415; 36430; 36600; 71045; 71046; 76937; 80048; 80053; 81003; 82330; 82435; 82803; 82947; 82948; 83735; 83880; 84100; 84132; 84295; 84443; 85014; 85018; 85025; 85027; 85347; 85384; 85610; 85730; 86870; 86880; 86885; 86900; 86901; 86906; 86922; 87070; 87081; 93005; 93308; 93312; 94002; 94003; 94760; 97116; 97161; 97530; A4615; A4618; A4624; A6212; A6213; A6258; A6449; A7048; C1729; C1751; C1756; C1760; C1769; C1894; G0378; J0171; J0690; J1100; J1642; J1644; J1815; J2250; J2270; J2370; J2704; J2720; J3010; J3370; J3475; J3480; J3490; J7030; J7040; J7050; J7120; P9012; P9016; P9035; P9059; Q9967